=== PATIENT | male | born 1980 | race Hispanic/Latino ===

== ENCOUNTER 2022-04-24 17:39 | Emergency (ER) | payer OTHER ==
[~2022-04-24] VITALS: Ht 175.3 cm; Wt 85.4 kg
[2022-04-24 17:40] VITALS: BP 118/73
[2022-04-24] MEDS ORDERED: MIRA3350 PO (20:31)
== END 2022-04-24 21:16 | disposition home or self-care (01) ==
LOC: M ED 17:39
DX: K62.89 Other specified diseases of anus and rectum (principal); K59.00 Constipation, unspecified; K62.5 Hemorrhage of anus and rectum; Z88.8 Allergy status to other drugs, medicaments and biological substances

== ENCOUNTER 2022-05-29 13:20 | Emergency (ER) | payer OTHER ==
[~2022-05-29] VITALS: Ht 175.3 cm; Wt 87.2 kg
[~2022-05-29 13:20] MED LIST: MIRA3350 PO
[2022-05-29 14:48] LABS: BASO # 0.1 10^3/uL (0.0-0.2); BASO % 0.8 % (0.0-1.0); EOS # 0.2 10^3/uL (0.0-0.5); EOS % 2.8 % (0.0-3.0); HEMATOCRIT 42.7 % (42.0-52.0); LYMPH # 3.4 10^3/uL (1.5-5.0); MEAN CORPUSCULAR HEMOGLOBIN 30.4 pg (27.0-33.0); MEAN CORPUSCULAR HGB CONC 32.8 g/dl (32.0-36.5); MEAN CORPUSCULAR VOLUME 92.8 fl (80.0-96.0); MONO # 0.6 10^3/uL (0.0-0.8); MONO % 8.1 % (2.0-8.0); NEUTROPHILS # 3.6 10^3/uL (1.5-8.5); PLATELET COUNT, AUTOMATED 193 10^3/uL (150-450); WHITE BLOOD COUNT 7.9 10^3/uL (4.0-10.0)
[2022-05-29 15:17] LABS: ALBUMIN 4.3 G/DL (3.2-5.2); ALKALINE PHOSPHATASE 79 U/L (46-116); ALT/SGPT 32 U/L (7.0-40); AST/SGOT 44 U/L (<34); BILIRUBIN,TOTAL 0.9 MG/DL (0.3-1.2); BLOOD UREA NITROGEN 20 MG/DL (9-23); CARBON DIOXIDE LEVEL 29 MMOL/L (20-31); CHLORIDE LEVEL 103 MMOL/L (98-107); CREATININE FOR GFR 1.07 MG/DL (0.70-1.30); GLOMERULAR FILTRATION RATE > 60.0 (>60); GLUCOSE, FASTING 86 MG/DL (60-100); POTASSIUM SERUM 4.1 MMOL/L (3.5-5.1); SODIUM LEVEL 139 MMOL/L (136-145); TOTAL PROTEIN 7.3 G/DL (5.7-8.2)
[2022-05-29 15:18] LABS: THYROID STIMULATING HORMONE 1.689 uIU/ML (0.55-4.78)
[2022-05-29] MEDS ORDERED: MECLIZINE 25 MG TABLET PO ONE (16:50)
[2022-05-29 17:10] VITALS: BP 160/75
[2022-05-29] MEDS ORDERED: MECL1TAB31 PO (20:09)
== END 2022-05-29 20:29 | disposition home or self-care (01) ==
LOC: M ED 13:20
DX: H81.4 Vertigo of central origin (principal)

== ENCOUNTER 2022-07-03 05:44 | Emergency (ER) | payer OTHER ==
[~2022-07-03] VITALS: Ht 175.3 cm; Wt 84.1 kg
[~2022-07-03 05:44] MED LIST changes: +MECL1TAB31 PO
[2022-07-03] MEDS ORDERED: IBUPROFEN 600MG TAB PO ONE (06:25)
[2022-07-03 09:30] VITALS: BP 121/78
== END 2022-07-03 09:38 | disposition home or self-care (01) ==
LOC: M ED 05:44
DX: S99.912A Unspecified injury of left ankle, initial encounter (principal); X50.0XXA Overexertion from strenuous movement or load, initial encounter; Y92.830 Public park as the place of occurrence of the external cause; Y93.67 Activity, basketball; Y99.8 Other external cause status; Z88.8 Allergy status to other drugs, medicaments and biological substances

== ENCOUNTER 2022-08-16 15:48 | Emergency (ER) | payer OTHER ==
[~2022-08-16] VITALS: Ht 175.3 cm; Wt 83.3 kg
[2022-08-16 15:48] VITALS: BP 139/83; TEMP 98; O2SAT 99
== END 2022-08-16 17:05 | disposition left against medical advice (07) ==
LOC: M ED 15:48
DX: Z53.21 Procedure and treatment not carried out due to patient leaving prior to being seen by health care provider (principal)

== ENCOUNTER 2022-09-28 06:25 | Emergency (ER) | payer OTHER ==
[~2022-09-28] VITALS: Ht 175.3 cm; Wt 83.6 kg
[2022-09-28 06:25] VITALS: BP 118/58; TEMP 96.8; O2SAT 98
== END 2022-09-28 08:26 | disposition home or self-care (01) ==
LOC: M ED 06:25
DX: S62.622A Displaced fracture of middle phalanx of right middle finger, initial encounter for closed fracture (principal); W22.8XXA Striking against or struck by other objects, initial encounter; Y92.89 Other specified places as the place of occurrence of the external cause; Y93.89 Activity, other specified; Y99.1 Military activity

== ENCOUNTER 2022-11-23 07:00 | Emergency (ER) | payer OTHER ==
[~2022-11-23] VITALS: Ht 175.3 cm; Wt 81.8 kg
[~2022-11-23 07:00] MED LIST changes: +MECL-209 PO; -MECL1TAB31 PO
[2022-11-23] MEDS ORDERED: TYLE650T38 PO (07:15)
[2022-11-23] MEDS ORDERED: PSEU30TA88 PO (07:15)
[2022-11-23] MEDS ORDERED: MUCI600T31 PO (07:15)
[2022-11-23] MEDS ORDERED: CYCLOBENZAPRINE 10MG TABLET PO ONE (08:30)
[2022-11-23] MEDS ORDERED: CYCL-707 PO (10:09)
[2022-11-23 10:34] VITALS: BP 127/74; TEMP 96.3; O2SAT 99
== END 2022-11-23 10:36 | disposition home or self-care (01) ==
LOC: M ED 07:00
DX: J06.9 Acute upper respiratory infection, unspecified (principal); M62.830 Muscle spasm of back; Z88.3 Allergy status to other anti-infective agents

== ENCOUNTER 2023-12-30 09:42 | Emergency (ER) | payer OTHER ==
[~2023-12-30] VITALS: Ht 175.3 cm; Wt 86.4 kg
[~2023-12-30 09:42] MED LIST changes: +CYCL-707 PO; +MUCI600T31 PO; +PSEU30TA88 PO; +TYLE650T38 PO
[2023-12-30 13:49] LABS: Trichomonas vaginalis (AMP) NOT DETECTED (NEGATIVE)
[2023-12-30 14:01] LABS: BLOOD UREA NITROGEN 24 MG/DL (9-23); CALCIUM LEVEL 9.7 MG/DL (8.5-10.1); CARBON DIOXIDE LEVEL 26 MMOL/L (20-31); CHLORIDE LEVEL 104 MMOL/L (98-107); CREATININE FOR GFR 0.98 MG/DL (0.70-1.30); GLOMERULAR FILTRATION RATE > 60.0 (>60); GLUCOSE, FASTING 80 MG/DL (60-100); SODIUM LEVEL 136 MMOL/L (136-145)
[2023-12-30 14:06] LABS: HEMATOCRIT 47.5 % (42.0-52.0); HEMOGLOBIN 15.8 g/dl (13.5-17.5); MEAN CORPUSCULAR HEMOGLOBIN 30.7 pg (27.0-33.0); MEAN CORPUSCULAR HGB CONC 33.3 g/dl (32.0-36.5); MEAN CORPUSCULAR VOLUME 92.4 fl (80.0-96.0); PLATELET COUNT, AUTOMATED 178 10^3/uL (150-450); RED BLOOD COUNT 5.14 10^6/uL (4.30-6.10); WHITE BLOOD COUNT 8.7 10^3/uL (4.0-10.0)
[2023-12-30 14:08] LABS: HEMOGLOBIN A1c 5.3 % (4.0-6.0)
[2023-12-30 14:12] LABS: GC DNA AMPLIFICATION NEGATIVE (NEGATIVE)
[2023-12-30] MEDS ORDERED: FLOM0.4C39 PO (14:37)
[2023-12-30 14:44] VITALS: BP 128/68; TEMP 97.8; O2SAT 98
== END 2023-12-30 14:48 | disposition home or self-care (01) ==
LOC: M ED 09:42
DX: R35.0 Frequency of micturition (principal); R39.15 Urgency of urination; Z87.891 Personal history of nicotine dependence; Z80.42 Family history of malignant neoplasm of prostate; Z91.048 Other nonmedicinal substance allergy status